=== PATIENT | female | born 1995 | race Caucasian/White ===

== ENCOUNTER 2023-08-27 20:35 | Emergency (ER) | payer MEDICAID ==
[~2023-08-27] VITALS: Ht 160 cm; Wt 104.0 kg
[2023-08-27 20:45] VITALS: O2SAT 98
[2023-08-27] MEDS: MORPHINE SULFATE 4 MG/ML INJ (FOR IV/IM USE) IV ONE (22:22)
[2023-08-27] MEDS: KETOROLAC 30MG/ML VIAL IV ONE (22:35)
[2023-08-27 22:57] LABS: CHLORIDE 108 mEq/L (98-107); POTASSIUM 4.2 mEq/L (3.5-5.1); SODIUM 139 mEq/L (136-145)
[2023-08-27 22:58] LABS: CALCIUM 9.5 mg/dL (8.7-10.4); CARBON DIOXIDE 24 mEq/L (21-32)
[2023-08-27 23:04] LABS: CREATININE 0.7 mg/dL (0.6-1.0); GLUCOSE 81 mg/dL (70-105); UREA NITROGEN BLOOD 10 mg/dL (9-23)
[2023-08-27 23:07] LABS: B-HCG QUANTITATIVE 1 mIU/mL (<3)
[2023-08-28 00:45] LABS: BASOPHILS % 0.7 % (0.0-2.0); DIFFERENTIAL COMMENT 0; EOSINOPHILS % 1.8 % (0.0-5.0); HEMATOCRIT. 27.6 % (36.0-48.0); HEMOGLOBIN. 8.5 g/dL (12.0-16.0); LYMPHOCYTES % 28.5 % (20.0-50.0); MEAN CORPUSCULAR HEMOGLOBIN 21.7 pg (28.0-32.0); MEAN CORPUSCULAR HGB CONC 30.8 g/dL (31.0-37.0); MEAN CORPUSCULAR VOLUME 70.4 fL (81.0-99.0); MEAN PLATELET VOLUME 7.8 fl (7.4-10.4); MONOCYTES % 7.7 % (2.0-8.0); NEUTROPHILS % 61.3 % (40.0-76.0); PLATELET 485 x1000/uL (130-400); RED BLOOD CELL COUNT 3.91 mill/uL (4.2-5.4); RED CELL DISTRIBUTION WIDTH 18.3 % (11.6-14.6); WHITE BLOOD COUNT 9.3 x1000/uL (4.5-11.0)
[2023-08-28 01:14] VITALS: BP 95/63; PULSE 67; RESP 16; TEMP 98.6
== END 2023-08-28 01:24 | disposition home or self-care (01) ==
LOC: ER 20:35
DX: O46.91 Antepartum hemorrhage, unspecified, first trimester (principal); Z3A.08 8 weeks gestation of pregnancy
CPT/HCPCS: 80048; 84702; 85025; 86850; 86900; 86901; 36415; 76830; 76856; 96374; 96375; 99285; J1885; J2270; Z7610

== ENCOUNTER 2023-10-22 23:11 | Emergency (ER) | payer MEDICAID ==
[~2023-10-22] VITALS: Ht 160 cm; Wt 90.0 kg
[2023-10-22 23:22] VITALS: O2SAT 87
[2023-10-23] MEDS ORDERED: ACETAMINOPHEN 325MG TABLET PO ONE
[2023-10-23] MEDS: ACETAMINOPHEN 325MG TABLET PO NR (00:20)
[2023-10-23] MEDS ORDERED: TOPUD MT (02:57)
[2023-10-23 03:28] VITALS: TEMP 98.2
[2023-10-23 03:35] VITALS: BP 115/62; PULSE 64; RESP 16
== END 2023-10-23 03:37 | disposition home or self-care (01) ==
LOC: ER 23:11
DX: S00.83XA Contusion of other part of head, initial encounter (principal); S09.90XA Unspecified injury of head, initial encounter; Z98.890 Other specified postprocedural states; Y08.89XA Assault by other specified means, initial encounter; Y93.89 Activity, other specified; Y92.89 Other specified places as the place of occurrence of the external cause; Y99.8 Other external cause status
CPT/HCPCS: 70486; 99284